=== PATIENT | male | born 1960 | race Caucasian/White ===

== ENCOUNTER 2018-07-20 18:36 | Emergency (ER) | payer MEDICAID ==
[~2018-07-20] VITALS: Ht 177.8 cm; Wt 59.0 kg
[~2018-07-20 18:36] MED LIST: ASPI-1264 PO; CYCL-394 PO; HYDR1TAB PO; NAPR-700 PO
[2018-07-20 18:53] VITALS: BP 167/75
[2018-07-20] MEDS ORDERED: HYDR-4353 PO (22:19)
== END 2018-07-20 22:30 | disposition home or self-care (01) ==
LOC: ER 18:36
DX: R51 Headache (principal); G89.29 Other chronic pain; F12.90 Cannabis use, unspecified, uncomplicated; F17.200 Nicotine dependence, unspecified, uncomplicated; Z59.0 Homelessness; Z79.82 Long term (current) use of aspirin; Z79.899 Other long term (current) drug therapy
CPT/HCPCS: 36415; 70450; 85651; 99284

== ENCOUNTER 2019-01-29 12:14 | Emergency (ER) | payer MEDICAID ==
[~2019-01-29] VITALS: Ht 177.8 cm; Wt 68.0 kg
[2019-01-29 12:20] VITALS: BP 147/74
[2019-01-29] MEDS ORDERED: triamcinolone acetonide 40mg/ml inj IM ONE (12:50)
[2019-01-29] MEDS ORDERED: acetaminophen 325mg tablet PO ONE (12:50)
[2019-01-29] MEDS ORDERED: MELO-100 PO (13:14)
[2019-01-29] MEDS ORDERED: ACET-812 PO (13:14)
[2019-01-29] MEDS ORDERED: LIDOcaine 1% 30ml preserv. free vial ONE (14:00)
== END 2019-01-29 13:23 | disposition home or self-care (01) ==
LOC: ER 12:15
DX: M25.512 Pain in left shoulder (principal); G89.29 Other chronic pain; F12.90 Cannabis use, unspecified, uncomplicated; Z59.0 Homelessness; Z79.82 Long term (current) use of aspirin; Z79.899 Other long term (current) drug therapy
CPT/HCPCS: 20610; 93005; 99284; J2001; J3301